=== PATIENT | male | born 1955 ===

== ENCOUNTER 2020-12-01 10:59 | Observation (INO) ==
[2020-12-01] MEDS ORDERED: BUPIVACAINE 0.25% 30 ML VIAL ONE (13:49)
[2020-12-01] MEDS ORDERED: fentaNYL citrate 100 MCG/2 ML VIAL ONE ×2 (13:49→14:56)
[2020-12-01] MEDS ORDERED: LIDOCAINE HCL 1% 20 ML VIAL ONE (13:49)
[2020-12-01] MEDS ORDERED: MIDAZOLAM HCL 5 MG/ML 1 ML VIAL ONE ×2 (13:49→14:56)
[2020-12-01] MEDS ORDERED: BACITRACIN INJ 50,000 UNIT VIAL ONE (13:51)
--- NOTE | 2020-12-01 14:04 | History & Physical Bridge Note ---
Date of Service December 01, 2020 History & Physical Bridge Note I have examined the patient, reviewed the History & Physical and in the interval since the performance of the History & Physical I have noted the following changes of clinical significance: no changes noted
--- NOTE | 2020-12-01 14:05 | Pre Anesthesia Assessment ---
Date of Service December 01, 2020 Pre Sedation Assessment Vital Signs Temp Pulse Resp BP Pulse Ox 12/01/20 11:10 36.4 C L 52 L 18 154/91 H 100 Cardiovascular RRR, no murmur, no edema Respiratory normal respiratory effort, lungs clear to auscultation Pre-Sedation Airway Assessment Smoking Status: Never smoker Hx Sleep Apnea: No Short, Thick Neck: No Thyromental Distance: > or= 3.5 Finger Breadths Oral Cavity: + WNL Mallampati Class: II ASA: ASA2 NPO Status Date of Last Intake of Fluids: 11/30/20 Date of Last Intake of Solid Food: 11/30/20 Procedure Planning Contraindications for Sedation: none Current Medications Reviewed: Yes Notes The planned sedation has been discussed with the patient. Informed Consent was obtained. I have identified the patient, determined the appropriateness of sedation and have assessed the patient immediately prior to the procedure. All medicine(s) and interventions are by my order.
--- NOTE | 2020-12-01 14:20 | History & Physical Report ---
Date of Service December 01, 2020 Assessment & Plan (1) SVT (supraventricular tachycardia): recommend EPS with possible ablation; rediscussed the procedure with the patient and potential risks; consents signed Present on Admission?: Yes (2) Sinus bradycardia: Present on Admission?: Yes History of Present Illness Chief Complaint: palpitations Primary Care Provider: Matt Jackson MD Pt continues to have intermittent sudden episodes of palpitations that respond typically to vagal maneuvers. He had one episode associated with near syncope so presents today for EPS with possible ablation Allergies Allergy/AdvReac Type Severity Reaction Status Date / Time No Known Allergies Allergy Verified 12/01/20 11:27 Home Medications Medication Instructions Recorded Confirmed Type aspirin 81 mg PO DAILY 12/01/20 12/01/20 History Past Med/Surg History Medical History Mild mitral regurgitation Sinus bradycardia SVT (supraventricular tachycardia) Surgical History History of tooth extraction Hx of tonsillectomy Family History Mother No problems noted. Father No problems noted. Social History Smoking Status: Never smoker Hx Alcohol Use: Yes Hx Substance Use: No Preferred Language: Kiswahili Padder Cushion Required: No Beliefs That Will Affect Care: None Current Living Situation: Spouse Other Information That Helps Us Care for You: No Feels Safe at Home: Yes Safety Concerns: Feels Safe At This Time Assistive Devices: None Review of Systems All systems reviewed & are unremarkable except as noted in HPI & below Physical Exam Physical Exam: aaox3, NAD NC/AT, EOMI Supple No JVD Nrl, bradycardic S1/S2, No murmur CTA b/l no w/r/r soft nt/nd no LE edema b/l skin intact no focal deficits Results & Data ([facility]) Vital Signs (Past 12 Hours) Vital Signs Temp Pulse Resp BP Pulse Ox 12/01/20 11:10 36.4 C L 52 L 18 154/91 H 100
[2020-12-01] MEDS ORDERED: ISOPROTERENOL HCL 0.2 MG/ML 5 ML AMP IV ONE (14:36)
--- NOTE | 2020-12-01 17:23 | Discharge Summary ---
Date of Service December 01, 2020 Admission HPI Per Admitting Provider Pt continues to have intermittent sudden episodes of palpitations that respond typically to vagal maneuvers. He had one episode associated with near syncope so presents today for EPS with possible ablation Admission Exam Per Admitting Provider aaox3, NAD NC/AT, EOMI Supple No JVD Nrl S1/S2, No murmur CTA b/l no w/r/r soft nt/nd no LE edema b/l skin intact no focal deficits Principal Diagnosis avnrt s/p ablation Discharge Exam [facility] Mallampati Class: II Respiratory normal respiratory effort, lungs clear to auscultation Cardiovascular RRR, no murmur, no edema Discharge Data Allergies Allergy/AdvReac Type Severity Reaction Status Date / Time No Known Allergies Allergy Verified 12/01/20 11:27 Procedures Performed Operation Date: 12/01/20 12:00 <No data on this case meets the specified criteria> Ordered Studies 12/01/20 14:30 EP Lab Images for PACS ONCE Hospital Course (1) SVT (supraventricular tachycardia): Pt admitted for elective EPS with possible ablation; 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 S/p slow pathway modification ablation; monitored post procedure and discharged home (2) Sinus bradycardia: Total Time Total Time Spent Total Time Spent (In Minutes): 40 Total Time Includes: Examination of the Patient, Discharge Planning, Medication Reconciliation and Other Discharge Plan Discharge Items Patient Disposition: Home - Self-Care Reason For Visit: Supraventricular Tachycardia Discharge Diagnosis: AVNRT s/p ablation Condition on Discharge: Good Activity: As commented below Lifting: No more than 10 pounds Lifting Comment: no heavy lifting or squating for 1 week Sexual Activity: After one week Driving/Machine Use: No limitations Non-emergency contact: Javascript Web Developer Call non-emergency contact if: you have any medication questions Follow-Up/Referrals: Matt Jackson MD [Primary Care Provider] - Diet: Resume previous diet Addtl Attending Provider Instructions: F/u with Dr. Carranza as scheduled in a month Pending Studies at Discharge: No Stand-Alone Forms: My [employer] Prescriptions: Continued aspirin 81 mg Tablet 81 mg PO DAILY RF: 0 Discharge Orders: Discharge Order (Routine); Ordered 12/01/20 Ordered By: Donya Carranza Admission Data Attending Provider: Donya Carranza Primary Care Provider: Matt Jackson
--- NOTE | 2020-12-03 06:02 | Electrocardiogram Report ---
Test Reason : Blood Pressure : / mmHG Vent. Rate : 045 BPM Atrial Rate : 045 BPM P-R Int : 202 ms QRS Dur : 096 ms QT Int : 460 ms P-R-T Axes : 071 071 067 degrees QTc Int : 397 ms Sinus bradycardia Otherwise normal ECG No previous ECGs available Confirmed by Jose Maria Gonzáles ([id number]) on 12/03/2020 6:01:39 AM Referred By: Matt Jackson Confirmed By:Jose Maria Gonzáles
--- NOTE | 2020-12-05 15:18 | Operative Report (OR) ---
DATE OF OPERATION: 12/01/2020 PREOPERATIVE DIAGNOSIS: Supraventricular tachycardia. 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 PROCEDURE: Electrophysiology study, 3D mapping of the His bundle region and coronary sinus os, isuprel drug infusion, slow pathway modification. ANESTHESIA: Monitored conscious sedation administered under my supervision by Jeanie Edgar. Start time 14:40, end time 17:18. Total of 9 mg of Versed, 200 mcg of fentanyl. INTRAVENOUS FLUIDS: 150 mL BLOOD LOSS: 5 mL URINE OUTPUT: Not applicable. SPECIMENS: None. FINDINGS: See below. DRAINS: None. CONDITION: Stable. COMPLICATIONS: None. INDICATIONS: This is a 65-year-old gentleman with past medical history for sinus bradycardia and SVT, he was recommended electrophysiology study due to the recurrent episodes. CONSENT: Consent was obtained prior to the patient going into electrophysiology lab. The patient was informed of the risks, benefits and alternative procedure. Risks include but not limited to sudden cardiac , cardiac arrhythmias, cerebrovascular accident, myocardial infarction, injury to the blood vessels, chamber of the heart or the [place] electrical system where he would need a permanent pacemaker, bleeding and infection. The patient understood these risks and agreed with procedure as planned. Informed consent was obtained. DESCRIPTION OF THE PROCEDURE: The patient was brought into the electrophysiology lab in a fasting state. He was connected to continuous radiation monitor. Timeout was performed to ensure patient identity and procedure correctly. He was prepped and draped over bilateral groins in normal surgical standard fashion. Monitored conscious sedation was given throughout the procedure for patient's comfort level. [place] precautions maintained throughout the procedure. 10 mL of 1% lidocaine, bupivacaine mixture were given in the bilateral groins for local anesthesia. Then using modified Seldinger technique, venous access was obtained in following manner. The right femoral vein had a 6-Chinese sheath that was ultimately swapped out for an SRO sheath and a FJ 4 mm Biosense nonirrigated ablation catheter. A 6-Chinese sheath followed by a Manny quadripolar catheter positioned in the high right atrium. The left femoral vein had a 6-Chinese sheath followed by a Manny quadripolar catheter positioned in the right ventricular apex. A 7-Chinese sheath followed by a Hisser catheter positioned in the His bundle region. A 7-Chinese sheath followed by a DF curve Decapolar coronary sinus Biosense catheter positioned down the coronary sinus. With all the catheter positioned an electrophysiology study was performed with following findings: Sinus cycle length was 1328 milliseconds, TX 193 milliseconds, QRS 91 milliseconds, QT 442 milliseconds, AH 102 milliseconds, HV 52 milliseconds, AV Wenckebach 410 milliseconds. Fast pathway ERP was 700/350 and 600/360. The AV node ERP was 700/340 and 600/350. The atrial ERP was 600/250. The right ventricular ERP was 600/260 and 400/230. I then gave double extrastimuli from the high right atrium, but I did not induce any SVT, so I started isuprel 2; on Isuprel 2 though he did get junctional, so I stopped the isuprel and then during washout, I easily induced SVT at 500/250. The tachycardia cycle length was 330 milliseconds. VA time was 80 milliseconds. It was concentric atrial retrograde conduction and there was a VAV response with ventricular pacing. So we set up to do a slow pathway modification by putting the SR0 catheter in and then with the ablation catheter, I did 3D mapping of the His bundle cloud and then located the coronary sinus os, then positioned the ablation catheter in the low right atrial septum and gave a series of radiofrequency tavares at 30 gonzalez. I did have some nice junctional rhythms during the ablation, so then I pulled back the catheter and did a post-ablation electrophysiology study with the following findings: Sinus cycle length 1329, TX 186 milliseconds, QRS 78 milliseconds, QT 442 milliseconds, HV was 60 milliseconds and AH was 108 milliseconds, AV Wenckebach was 430 milliseconds, the fast pathway ERP was 700/340, the AV node ERP was 700/330 and less than or equal to 600/290. The atrial ERP was 700/290 and 600/290 and the RV ERP was 600/270 and 400/210. Of note, I did get 1 echo at 600/330 atrial extrastimuli. I then restarted isuprel and once I got a junctional rhythm on isuprel I stopped it and then during washout started to try to induce again at 700/310, AV Wenckebach was 400 milliseconds. I did reinduce the tachycardia at 500/290, so I went back and gave more series of tavares creating more junctional rhythms and then I felt satisfied and did a post-ablation #2 electrophysiology study with the following findings: Sinus cycle length 1300, TX 190, QRS 90, QT 440. The AH was 110 and the HV was 60, the AV Wenckebach was 400 milliseconds, AV node ERP was 700/440. Atrial ERP was 700/270. Right ventricular ERP was 600/260 and 400/250. I did not see any echos and I did not induce any SVT with double atrial stimuli and then started Isuprel at 2 and then when I had junctional rhythms I stopped again and went back to see if I can be induced during washout of the isuprel, the fast pathway ERP was 700/310 and 600/320, the AV node ERP was less than or equal to the atrial ERP at 700 and 600, the atrial ERP was 700/260 and 600/260. The right ventricular ERP was 600/270 and 400/200. I was not able to induce any SVT, so then all the catheters were removed from the body. The sheaths were pulled and manual compression was used to establish hemostasis. IMPRESSION: 1. 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 2. Dual atrioventricular bobbi pathology. 3. Sick sinus syndrome with marked sinus bradycardia. PLAN: Monitor the patient post-procedure, bed rest for 2 hours. He is not to do any heavy lifting or squatting for a week. I will see him back in 1 month's time. I attest to the content of the Intraoperative Record and any orders documented therein. Any exception s are noted below.
== END 2020-12-01 20:20 | disposition home or self-care (01) ==
LOC: EP 10:59 → 2S 10:59